=== PATIENT | male | born 1990 | race Caucasian/White ===

== ENCOUNTER 2017-01-20 06:53 | Observation (INO) | payer MEDICARE, MEDICAID ==
[~2017-01-20] VITALS: Ht 180.3 cm; Wt 67.9 kg
[2017-01-20] VITALS (9 sets, daily range): BP systolic 138–165; BP diastolic 64–109; PULSE 84–119; RESP 16–22; O2SAT 98–100
[~2017-01-20 06:53] MED LIST: ACET325T51 PO; ALBU18HF INHALATION; CYCL10TA9 PO; HYDR-4003 PO; INSU100V2 SUBQ; INSU100V7 SUBQ; ONDA4TAB6 PO; ONDA4TAB9 PO; PROM25TA14 PO
--- NOTE | 2017-01-20 06:58 | ED.REPORT ---
HPI-NVD Date of Service Jan 20, 2017 ED Provider: Jarrell Hutchins MD This is a 26 year old male with a history of gastroparesis, DM, IV drug abuse, non-epileptic seizures presenting to the emergency department due to sudden onset nausea and vomiting that began 3 hours ago upon awakening. Patient reports running out of prescribed Lantus one week ago but he took Apidra today morning. He states, "it hurts so bad everywhere." Patient has a history of DKA and states that his symptoms today are worse than with previous DKA. Patient last used IV heroin just prior to arrival. Reports chills. Denies fevers, recent infections, abdominal pain, diarrhea, dysuria, chest pain, or change LOC at this time. He has recent history of elevated blood sugar of 700 for which he was hospitalized for at [facility] [place]. Nursing Notes Stated Complaint: VOMITING Nursing Notes Reviewed: Yes (Fraxion, meds not reconciled) Allergies: Coded Allergies: bee venom (honey bee) (Verified Allergy, Severe, 03/29/16) metoclopramide HCl (Verified Allergy, Severe, Anaphylaxis, 03/29/16) prochlorperazine edisylate (Verified Allergy, Severe, 03/29/16) 03/20/16 PATIENT RECEIVED PROMETHAZINE prochlorperazine maleate (Verified Allergy, Severe, 03/29/16) Scheduled Acetaminophen (Acetaminophen) 325 Mg Tablet MG PO Q4H Insulin Glulisine (Apidra U100 Insulin Vial) 100 Unit/1 Ml Vial 1-12 UNIT SUBQ WITH MEALS Scheduled PRN Albuterol Sulfate (Ventolin HFA Inhaler) 200 Puff/18 Gm Inhaler 1 PUFF INHALATION Q4H PRN PRN For Shortness of Breath Cyclobenzaprine (Cyclobenzaprine) 10 Mg Tablet 10 MG PO TID PRN PRN Spasm Hydrocodone-Acetaminophen 5-325 mg (Hydrocodone-Acetaminophen 5-325 mg) 1 Each Tablet 1 TABLET PO Q4H PRN PRN For Pain Insulin Glargine (Lantus U100 Insulin Vial) 100 Unit/Ml Vial 30 UNIT SUBQ QPM- INSULIN PRN PRN Diabetes Ondansetron (Zofran) 4 Mg Tablet 4 MG PO Q4H PRN PRN For Nausea Ondansetron ODT (Zofran ODT) 4 Mg Tablet 4 MG PO Q4H PRN PRN For Nausea Promethazine (Promethazine) 25 Mg Tablet 25 MG PO Q6H PRN PRN For Nausea Promethazine (Promethazine) 25 Mg Tablet 25 MG PO Q6H PRN PRN For Nausea General Time Seen by MD: 06:54 Chief Complaint Vomiting Hx Obtained From: Patient Arrived By: Walk-in Onset Occurred: 1 - 4 hours ago Symptom Duration: Since onset Severity: Current: Moderate Pertinent Negative: Pt denies other symptoms Recent Healthcare: Recent doctor visit Similar Sx Previous: No Past Medical History Past Medical History Gastroparesis Degenerative disc disease ho Fractured right collar bone [place] disease ho Heart murmur ho non-epileptic seizures Reports: Asthma, Diabetes mellitus Past Surgical History Surgery for fractured collar bone Reports: Cholecystectomy Smoking History Former Smoker Social History Alcohol Use: Denies alcohol use Drug Use: IV drugs Other Social History: Local resident Occupation Unemployed Ambulatory Status Independent Review of Systems Constitutional: Denies: Chills, Fever GI: Reports: Nausea, Vomiting, Denies: Abdominal pain, Diarrhea Neurologic: Denies: Headache, Lightheaded Complete sys rev & neg: except as marked. Respiratory: Denies: Non-productive cough, Shortness of breath Physical Exam Initial Vital Signs Vital Signs (First) Date Time Temp Pulse Resp B/P Pulse Ox O2 Delivery O2 Flow Rate FiO2 01/20/17 06:58 36.1 119 22 161/109 99 Room Air Initial VS: Reviewed Head / Eyes: Atraumatic, Normocephalic, PERRL Neck: Supple, Non-tender, Full range of motion Respiratory: Breath sounds normal, Clear to auscultation, No respiratory distress Extremities: Vascular intact, Neuro intact, No swelling, No tenderness Skin: Warm, Dry, No cyanosis Neurologic: Alert, Oriented, Nonfocal Psychiatric: Mood/affect normal, Behavior normal, Normal thought content General/Constitutional: Awake, Alert Wretching repeatedly, cachectic, and moaning. History is mostly provided by friend present in the room. Track castillo on arms Abdomen: Atraumatic, Soft, Non-tender Mouth: Positive: Mucous membranes dry Interpretation & Diagnostics Blood Gas Report pH 7.394 pCO2 38 pO2 63.8 cHCO3 - (P) 23.0 cBase (B) -1.6 Lab Results Interpretation Result Diagram: 01/20/17 0705 01/20/17 0705 Test 01/20/17 07:05 01/20/17 07:21 White Blood Count 14.8th/mm3 (3.8-10.1) Red Blood Count 5.36mil/mm3 (4.40-5.80) Hemoglobin 14.1g/dL (13.8-17.2) Hematocrit 40.6% (41.0-50.0) Mean Corpuscular Volume 75.7fL (81-100) Mean Corpuscular Hemoglobin 26.3pg (27.0-35.0) Mean Corpuscular Hemoglobin Concent 34.7% (32.0-37.0) Red Cell Distribution Width 13.3% (12.3-15.4) Platelet Count 179bil/L (150-400) Neutrophils (%) (Auto) 69.4% (40-74) Lymphocytes (%) (Auto) 20.0% (14-46) Monocytes (%) (Auto) 7.9% (4-12) Eosinophils (%) (Auto) 2.0% (0-5) Basophils (%) (Auto) 0.4% (0-3) Sodium Level 129mEq/L (134-144) Potassium Level 4.7mEq/L (3.5-5.2) Chloride Level 86mEq/L (97-108) Carbon Dioxide Level 16mmol/L (18-29) Blood Urea Nitrogen 19mg/dL (6-20) Creatinine 0.67mg/dL (0.76-1.27) Estimat Glomerular Filtration Rate 154mL/min (>59) Glucose Level 637mg/dL (60-99) Calcium Level 10.2mg/dL (8.5-10.1) Total Bilirubin 1.7mg/dL (0.0-1.2) Aspartate Amino Transf (AST/SGOT) 23U/L (0-50) Alanine Aminotransferase (ALT/SGPT) 13U/L (0-44) Alkaline Phosphatase 186U/L (25-150) Total Protein 8.0g/dL (6.4-8.4) Albumin 4.4g/dL (3.4-5.0) Lipase 11U/L (13-60) Ketones Small (Negative) Hold Grimaldo Top Tube Received (Received) Lab Results Interpretation: CBC positive leukocytosis CMP pseudohyponatremia, metabolic acidosis with anion gap of 27 consistent with DKA, hyperglycemia 637 Re-Eval/Medical Decision Med Decision/Clinical Course Is a 26-year-old male with a history of substance abuse presents complaining of nausea vomiting and being out of insulin for several days. Says he could not afford any his insulin, test strips, so has been able to take any of his Lantus for a number of days, but did just make a gas at some short acting insulin today , but is having worsening nausea vomiting abdominal pain that is had with previous DKA. He did admit to injecting heroin prior to coming in, but is concerned he will develop withdrawal in the hospital. On Exam he is a cachectic gentleman who is retching repeatedly, he appears fatigued and mildly ill-but does not appear toxic or in distress. He has no chest pain, no infectious symptoms. His abdomen is soft nontender. Initial venous gas was quite normal, so I actually initiated non-DKA insulin drip along with nausea medicines and hydration, but when his formal labs returned he does have a cochlear anion gap of 27 consistent with formal DKA, so was switched over to a DKA insulin drip the (the physical drip had not yet been started) His Potassium is normal. He is receiving hydration, is concerned about withdrawal reports of methadone 20 mg at a good job helping him, so once his nausea is controlled he did receive a single dose of methadone in the department. He is being admitted to the CCU for continued management of his diabetic ketoacidosis. A social work consult is indicated. This case was discussed with the admitting hospitalist. Source of Hx: Old records Re-Evaluation/Progress : Time of Eval: 09:02 Re-Evaluation/Progress Note: Pt rechecked. Informed pt of need for admission. Pt understands and agrees with plan for admission. All questions addressed. Consultation : Referral / Consult Name: Ever Franklin MD Consulted With: Hospitalist Call Returned at: 08:58 Airbrush Artist: Accepts admit Differential Diagnosis: Positive: Dehydration, Diabetes mellitus, Diabetic ketoacidosis, Negative: Acute gastroenteritis, Appendicitis, Bowel obstruction, Inflam bowel disease, Meniere's disease, Pancreatitis, Peptic ulcer disease, Counseled Regarding: Diagnosis, Lab results, Need for follow-up Discharge & Departure Impression: Primary Impression: DKA (diabetic ketoacidoses) Diabetes mellitus type: type 1 Diabetes mellitus complication detail: without coma Qualified Code: E10.10 - Type 1 diabetes mellitus with ketoacidosis without coma Additional Impressions: Noncompliance with medication regimen Substance abuse Disposition: ADMITTED TO HOSPITAL Discharge Condition All VS Reviewed: Yes Condition: Stable Referrals: Celso Beatty MD (PCP) Crit Care Except Billable Proc Time Spent: 30-74 minutes Services Performed: Patient management by me, Time spent at bedside, Reviewing test results, Discussing patient care, Documentation in record, Time with fam/ surrogate, Other Scribe Attestation Portions of this note were transcribed by Jan Red. I, Dr. Hutchins personally performed the history, physical exam and medical decision- making; I reviewed and confirmed the accuracy of the information in the transcribed note. Signed by: Jan Red. 01/20/2017, 15:00. copies to: Celso Beatty MD, Matthew F MD Jan 20, 2017 06:58 DERICK RED Jan 20, 2017 07:10 Jan Yang Jan 20, 2017 07:49
[2017-01-20] MEDS ORDERED: 0.9% Sodium Chloride 1,000 ML IV ONE ×2 (07:05→07:10)
[2017-01-20] MEDS ORDERED: Ondansetron 2 mg/mL 2 mL Inj ONE (07:06)
[2017-01-20] MEDS ORDERED: Promethazine Inj 25 MG in 0.9% Sodium Chloride-Pha MIX 100 ML IV ONE (07:10)
[2017-01-20] MEDS ORDERED: Ondansetron 2 mg/mL 2 mL Inj IVPUSH ONE ×2 (07:10→08:40)
--- NOTE | 2017-01-20 07:21 | ABG ---
DateTimeAnalyzed 07:17:00 -_ pH ____7.382 - pCO2 ___39.1__ -mmHg pO2 ___52.4__ -mmHg HCO3- ___22.7__ -mmol/L ABE ___-1.6__ -mmol/L tHb ___14.8__ -g/dL O2Hb ___86.3__ -% COHb ____2.4__ -% MetHb ____0.8__ -% sO2 ___89.2__ -% FIO2 ___21.0__ -% Drawn By jmw - Date/Time Notified____ 07:20:00 -_ Notified By JMW - Notified Whom DR SHY - Age 20 -years B 763 -mmHg tO2 ___17.9__ -Vol% Ever test N/A -
[2017-01-20 07:27] LABS: BASOPHILS % (AUTO) 0.4 % (0-3); MONOCYTES % (AUTO) 7.9 % (4-12); Mean Corpuscular Hemoglobin 26.3 pg (27.0-35.0); Mean Corpuscular Volume 75.7 fL (81-100); NEUTROPHILS % (AUTO) 69.4 % (40-74); Platelet Count 179 bil/L (150-400)
--- NOTE | 2017-01-20 07:37 | ABG ---
DateTimeAnalyzed 07:32:52 -_ pH ____7.394 - pCO2 ___37.7__ -mmHg pO2 ___63.8__ -mmHg HCO3- ___23.0__ -mmol/L ABE ___-1.6__ -mmol/L tHb ___14.9__ -g/dL O2Hb ___92.5__ -% COHb ____3.3__ -% MetHb ___-0.3__ -% sO2 ___95.4__ -% FIO2 ___21.0__ -% Drawn By jmw - Date/Time Notified____ 07:37:00 -_ Notified By JMW - Notified Whom DR SHY - Age 20 -years B 761 -mmHg K+ ____5.4__ -mmol/L tO2 ___19.3__ -Vol% Ever test N/A -
[2017-01-20] MEDS ORDERED: Insulin Human REGular Inj 100 UNIT in 0.9% Sodium Chloride-Pha MIX 100 ML IV SCH (08:37)
[2017-01-20 08:58] LABS: Lipase 11 U/L (13-60)
[2017-01-20] MEDS ORDERED: Insulin Human REGular 100 Units/100 mL NS IV SCH ×2 (09:05)
[2017-01-20] MEDS ORDERED: Alum-Mag Hydrox-Simeth 30 mL Suspension PO PRN ×2 (09:15→15:45)
[2017-01-20] MEDS: 0.9% Sodium Chloride 1,000 ML IV SCH ×2 (09:41→17:03)
[2017-01-20] MEDS: Insulin Human REGular 100 Units/100 mL NS IV SCH ×4 (09:51→17:38)
[2017-01-20] MEDS: Ondansetron 2 mg/mL 2 mL Inj IVPUSH PRN ×4 (10:11→21:32)
[2017-01-20 12:09] LABS: Magnesium 1.9 mg/dL (1.6-2.6); Phosphorus 4.1 mg/dL (2.5-4.9)
[2017-01-20 12:25] LABS: APPEARANCE,URINE CLEAR (CLEAR,HAZY); COLOR,URINE STRAW (YELLOW); OCCULT BLOOD,URINE LARGE (NEGATIVE); UROBILINOGEN,URINE NORMAL (NORMAL)
[2017-01-20] MEDS: D5W1/2NS 1,000 mL IV PRN ×2 (13:50→22:59)
--- NOTE | 2017-01-20 13:50 | PCM.HPMED ---
Subjective Date of Service Jan 20, 2017 Primary Provider: Admitting Physician: Ever Franklin MD Primary Care Physician: Celso Beatty MD Attending Physician: Ever Franklin MD Admit Status: From the Emergency Department, 23-Hour Observation, Critical Care Chief Complaint: Hyperglycemia and vomiting. History of Present Illness: This is a 26-year-old gentleman with a history of heroin addiction who is currently actively using. He has been homeless for about 8 days. He also has diabetes mellitus which is insulin-dependent. He has been out of his insulin for several days has not been using any insulin for about 2 days. He was using some short acting for a couple of days. He has been out of test strips for over a week and has been essentially doing his shots blind. He also has been actively using heroin. Heroin for about the last year. He had been clean for a year and had been smoking heroin previously. The patient became acutely ill this morning with nausea vomiting but no diarrhea. He has diffuse pain. His last heroin usage was this morning. He denies fevers or chills. No cough or shortness of breath. No palpitations. No recent difficulty with hematuria and dysuria. He had other drug use. Review of Systems: All else reviewed and otherwise noncontributory except as noted in the history of present illness. Allergies Coded Allergies: bee venom (honey bee) (Verified Allergy, Severe, 03/29/16) metoclopramide HCl (Verified Allergy, Severe, Anaphylaxis, 03/29/16) prochlorperazine edisylate (Verified Allergy, Severe, 03/29/16) 03/20/16 PATIENT RECEIVED PROMETHAZINE prochlorperazine maleate (Verified Allergy, Severe, 03/29/16) Home Medications None recently. PMH DM 1, insulin dependent. Heroin addiction Surgical History None Family History Diabetes Social History Occupation: None Hx Alcohol Use: No Hx Substance Use: Yes (Heroin last used this am) Hx Tobacco Use: Yes Smoking Status: Former Smoker Exam Vital Signs Vital Sign - Last Date Time Temp Pulse Resp B/P Pulse Ox O2 Delivery O2 Flow Rate FiO2 01/20/17 12:30 36.6 109 18 152/72 100 Room Air Exam Oriented 3. No distress. Fluent speech. Normal affect. Very thin. Normal skull. Normal nose and ears. Anicteric sclera, symmetric pupils Oropharynx is unremarkable, no facial droop. Neck is supple, normal thyroid. No adenopathy. Lungs are clear, normal effort rate. Heart is regular without murmur gallop or rub. Abdomen soft, nondistended or tender. Extremities are free of pedal edema. Good radial and pedal pulses. Skin is free of rash, lesions. No petechiae or ecchymosis. Joints are grossly normal. Cranial nerves are grossly normal. Motor strength is normal in all extremities. Normal muscular tone. Track castillo and many clown tattos are noted. Lab and Diagnostics Result Diagram: 01/20/1770401/20/17704 Assessment & Plan 1. Hyperglycemia and volume depletion, POA. Non DKA insulin drip protocol and fluid resuscitation. This is due to medication non-compliance. 2. Medication non-compliance, POA. Resume insulin. 3. Heroin addiction, POA. Watch for symptoms of withdrawal. Patient is admitted observation status. Full code. Resuscitation Status: CPR: Attempt Resuscitation Time spent 40 minutes Ever Franklin MD Jan 20, 2017 13:50
[2017-01-20] MEDS ORDERED: Polyethylene Glycol (PEG) 17 Gm Powder PO PRN (15:45)
[2017-01-20] MEDS ORDERED: Ondansetron 2 mg/mL 2 mL Inj IVPUSH PRN (15:45)
--- NOTE | 2017-01-20 16:50 | NUR ---
P: Hyperglycemia I: Insulin gtt DKA protocol. NS. infusing at 100cc/hr. D.45NS infusing with blood sugars more stable. NPO. c/o nausea with bile emesis. Pt insists on drinking sips of water even though it has been explained that he will throw it up. Pt has one peripheral line and lab or IV therapy have been unable to get blood or second line in due to pt's poor veins. Napping on and off. Voiding qs. Family at bedside. Pt alert and oriented. Turns self. E: Stable S: Alert and oriented. Uses call light appropriately. Frequent rounding.
--- NOTE | 2017-01-20 17:51 | NUR ---
SAMANTHA explained and signed. Copy of SAMANTHA and Medicare self administered medication information given to pt.
[2017-01-20] MEDS: Promethazine Inj 12.5 MG in 0.9% Sodium Chloride 50 ML IV PRN ×2 (17:54→22:12)
[2017-01-20] MEDS ORDERED: Promethazine 25 mg Rectal Suppository RECTAL ONE (19:30)
[2017-01-21] VITALS: BP 164/70; PULSE 99; RESP 14; O2SAT 100
[2017-01-21 04:03] VITALS: BP 143/74; PULSE 78; RESP 18; O2SAT 99
[2017-01-21] MEDS: 0.9% Sodium Chloride 1,000 ML IV SCH (05:00)
[2017-01-21 05:08] LABS: BASOPHILS % (AUTO) 0.2 % (0-3); EOSINOPHILS % (AUTO) 1.2 % (0-5); MONOCYTES % (AUTO) 7.9 % (4-12); Mean Corpuscular Volume 76.8 fL (81-100); NEUTROPHILS % (AUTO) 79.4 % (40-74)
[2017-01-21 05:38] LABS: Platelet Count 220 bil/L (150-400)
--- NOTE | 2017-01-21 06:17 | NUR ---
DKA protocol Pt on insulin dka protocol, BG from 120-280's, hydrating fluid Ns @ 100 cc/hr and D5 1/2NS or D10 IV, anion gap this am is 22. Pt adamant on drinking water despite being told of NPO status. Pt continue to have cyclic nausea and vomiting immediately after drinking, pt remain insistent on drinking water. Given zofran and phenergan IV prn for nausea, also phenergan suppository x1 given and lorazepam 1 mg for anxiety Pt asking to get methadone to help with withdrawal symptoms from heroin, notified and given methadone 10mg po. Pt stated "that's not enough for me". Through midnight pt became very anxious and fidgety in bed. RN overheard conversation with brother on phone. "hurry up", "when will you be here?". Pt's brother and a friend came up to visit shortly after midnight, primary RN outside of pt's room with window up and visible from the outside. Brother handed pt w/ eyeglasses and a watch, pt quick in putting stuff away. Visitors left less than 5 mins after they arrived. Pt stated he want to use the BR because he felt like having diarrhea, pt dc'd himself from tele monitor and in BR for about 30 mins, RN frequently checked on pt. Pt wanting more time in BR dt self-reported diarrhea. RN asked pt not to flush toilet to assess stool, pt proceeded to flush. When pt came out of BR, pt appeared groggy. HR briefly in the 150's [address], RN questioned patient if brother had brought in heroin. Pt denied when asked. Pt slept from midnight until around 0500 when lab came around. Pt nauseated again and wanting zofran and or phenergan dose.
[2017-01-21 08:29] VITALS: BP 135/72; PULSE 92; RESP 20; O2SAT 100
[2017-01-21 12:00] VITALS: BP 120/74; PULSE 88; RESP 16; O2SAT 100
[2017-01-21] MEDS ORDERED: Insulin GLARgine 100 Unit/mL Syringe SUBQ ONE (13:20)
[2017-01-21] MEDS ORDERED: Glucose 40% Oral Gel 15 Gm Tube PO PRN (13:25)
[2017-01-21] MEDS ORDERED: Insulin LISPRO 300 Unit/3 mL Inj SUBQ SCH (14:30)
[2017-01-21 15:30] VITALS: BP 135/72; PULSE 82; RESP 12; O2SAT 100
--- NOTE | 2017-01-21 15:48 | NUR ---
Social Work Note: CD Assessment Current Circumstances: SW met with pt at bedside to discuss CD hx and resources per MD request. Pt was positive for Opiates, Antidepressants, and Marijuana. Pt denies any current w/d symptoms. Per hand straightener, there was suspicion of pt friend bringing in outside substances to pt last night. Hx of Substance use: Pt reports participating in drug use beginning in the age 12 when he started stealing his mothers prescription pain pills. Pt current preference is Heroin. Pt last used heroin prior to arrival in the ED at this hospital admission per ED summary report. Hx of tx programs/detox: Pt explained that he has participated in inpt tx and NA before but it was not helpful for him as it was too religiously focused. Family hx: Pt cites "half of my family are addicts, its hard to stay clean when everyone around you is doing drugs." Hx of sobriety and supports: Pt cites his mother as his primary support. Pt also cites his four year old daughter as his primary motivation to get and stay clean. Pt was sober for three years after his girlfriend became with their daughter. Pt relapsed two years ago when his girlfriend became again and they decided to terminate the due to being homeless and other psychosocial factors. Pt reflected on how hard of a decision that was for them as it "went against everything we believed in and wanted." SW and pt discussed engaging in outpt mental health services for extra support out in the community in addressing that traumatic time in his life. Pt explained he was enrolled with [facility] in the past as well and had a very good experience with their case management program. SW offered to make an outpt appointment for him at time of discharge, pt politely declined and explained he knows how to establish care with [facility] if he chooses to go back. Patients Perception of the consequences of use: Pt does not connect pt decline in health with his CD use. Pt does have some insight into his situation and his reliance on drugs in order to deal with his internal struggles and stress. Suicide Risk: Pt denies and current suicidal ideation or thoughts of harming himself or others. Pt explained when he was younger he struggled with depression and SI due to bullying after his diabetes diagnosis at a young age. Pt explained he began using marijuana which pt states helped with his depression and he has not experienced those symptoms since. Pt confirmed that if he ever did experience depression again or found him self struggling in a traumatic situation again he would feel comfortable communicating this with his mother. Pt also accepted Crisis Line Number Motivation for tx: Pt accepted CD resources and is thinking about following up with [facility] but declined any additional help making outpt appointments. Discharge Plan: Pt plans to discharge home via POV when medically ready. Pt denies any other needs. No other discharge needs identified. VANESSA Rahman
--- NOTE | 2017-01-21 16:22 | NUR ---
Social Work Note: Initial Assessment Data& Assessment: EMR reviewed. SW met with pt at bedside to discuss charge planning, SW role explained. Mukesh Galdamez is a 26 year old male under observation beginning on on 01/20/2017 for DKA. Pt explained he had trouble obtaining his medications due to financial reasons. Pt explained his medication is only $3.50 though and he should have no issues being able to afford it in the future. Pt has Medicare and [facility] Medicaid supplement. Pt confirmed his PCP is still current and he sees Celso Beatty MD. Pt lives in [place] and is currently couch surfing with friends and family. Pt mother is a positive support for him though and helps to mange his medications. Pt does not have SNf or HHhx. Pt does not have LTC insurance or VA benefits. Pt is independent at baseline with all ADL's. Pt does not use any DME. Pt mother to transport him home when medically ready. CD assessment completed, resources provided. Pt provided with DPOA/Advance Directive paperwork to review and complete when possible. Pt denies any other needs. No other discharge needs identified. Plan: Per pt is getting closer to being medically ready for discharge. Pt accepted resources. Anticipated discharge home via POV when medically ready. Pt denies any other needs. No other discharge needs identified. VANESSA Rahman
--- NOTE | 2017-01-21 16:30 | PCM.DIMED ---
Savanah Montilla DO 01/21/17 1630: Discharge Instructions Date of Service January 21, 2017 Dates of Hospitalization Jan 20, 2017 at 09:47 Discharge Diagnosis Discharge Diagnosis 1. Hyperglycemia and volume depletion, POA. Non DKA insulin drip protocol and fluid resuscitation. 2. Medication non-compliance, POA. . 3. Heroin addiction, POA. Medication Instructions PLEASE TAKE YOUR INSULIN. At minimum please take your 30 units of Lantus daily. Diet Diabetic Activity Limited until seen by PCP Call your provider Fever or Chills, Shortness of breath, Excessive diarrhea Patient Instructions Please follow up with your PCP in one week. Follow-up Provider: Celso Beatty MD Follow-up with PCP in: 1 week Ever Franklin MD 01/22/17 0731: Discharge Instructions Attending's Statement The patient was seen and examined with the resident house staff. Agree with all attached documentation. Savanah Montilla DO January 21, 2017 16:30 Ever Franklin MD January 22, 2017 07:31
[2017-01-21] MEDS ORDERED: INSU100V7 SUBQ (16:32)
[2017-01-21] MEDS ORDERED: INSU100V28 SUBQ (16:32)
--- NOTE | 2017-01-21 16:57 | NUR ---
Pt to be discharged home Pt condition stabilized and last sugar was in the 200's following lunch. He had a dose of lantus and correctional insulin this afternoon after his IV fluids and insulin was discontinued. Pt has been cooperative this afternoon and is eager to go home. He is to start at new job this week and has given him a note to indicate it is OK to start work on Wed am. VS have been stable. Last temp was 37.2. He has tolerated diet and fluids well without any nausea or vomiting.
--- NOTE | 2017-01-21 17:44 | NUR ---
Pt discharged at 1720hrs Pt was discharged with written and verbal orders, he has prescriptions for his insulin. IV was removed prior to discharge and his mother was picking him up to take him home.
--- NOTE | 2017-01-21 18:51 | NUR ---
Note: 2 empty syringes were found in pt bathroom after pt discharged. 2 diabetic type syringes were found discarded and wrapped in paper towels in the garbage bin in the pt room after he left this afternoon. They were discarded into a sharps container.
--- NOTE | 2017-01-22 21:50 | PCM.DC.MED ---
Discharge Summary Date of Service January 22, 2017 Dates of Hospitalization Date of Hospital Admission Jan 20, 2017 at 09:47 Date of Discharge: January 21, 2017 Providers: Admitting Physician: Ever Franklin MD Primary Care Physician: Celso Beatty MD Attending Physician: Ever Franklin MD Diagnosis at Time of Discharge Diagnosis at Time of Discharge 1. Hyperglycemia and volume depletion, POA. Non DKA insulin drip protocol and fluid resuscitation. 2. Medication non-compliance, POA. . 3. Heroin addiction, POA. Brief History From Dr. Franklin's H and P: "This is a 26-year-old gentleman with a history of heroin addiction who is currently actively using. He has been homeless for about 8 days. He also has diabetes mellitus which is insulin-dependent. He has been out of his insulin for several days has not been using any insulin for about 2 days. He was using some short acting for a couple of days. He has been out of test strips for over a week and has been essentially doing his shots blind. He also has been actively using heroin. Heroin for about the last year. He had been clean for a year and had been smoking heroin previously. The patient became acutely ill this morning with nausea vomiting but no diarrhea. He has diffuse pain. His last heroin usage was this morning. He denies fevers or chills. No cough or shortness of breath. No palpitations. No recent difficulty with hematuria and dysuria. He had other drug use." Hospital Course 1. Hyperglycemia and volume depletion, POA. DKA protocol initiated. AG closed quickly and patient was eager to be discharged home. 2. Medication non-compliance, POA. Resumed insulin. 3. Heroin addiction, POA. No symptoms of withdrawal noted. Exam Vital Signs (Last) Date Time Temp Pulse Resp B/P Pulse Ox O2 Delivery O2 Flow Rate FiO2 01/21/17 15:30 37.2 82 12 135/72 100 Room Air Exam Oriented 3. No distress. Fluent speech. Normal affect. Very thin. Normal skull. Normal nose and ears. Anicteric sclera, symmetric pupils Oropharynx is unremarkable, no facial droop. Neck is supple, normal thyroid. No adenopathy. Lungs are clear, normal effort rate. Heart is regular without murmur gallop or rub. Abdomen soft, nondistended or tender. Extremities are free of pedal edema. Good radial and pedal pulses. Skin is free of rash, lesions. No petechiae or ecchymosis. Joints are grossly normal. Cranial nerves are grossly normal. Motor strength is normal in all extremities. Normal muscular tone. Track castillo and many clown tattos are noted. Test 01/20/17 07:05 01/20/17 07:21 01/20/17 09:45 01/21/17 05:00 Hemoglobin A1c 12.1% (4.8-5.6) Osmolality 325 (275-300) Phosphorus Level 4.1mg/dL (2.5-4.9) Magnesium Level 1.9mg/dL (1.6-2.6) Lipase 11U/L (13-60) Ketones Small (Negative) Hold Grimaldo Top Tube Received (Received) Urine Color Straw (YELLOW) Urine Appearance Clear (CLEAR,HAZY) Urine pH 5.0 (5.0-8.0) Urine Specific [place] 1.025 (1.003-1.035) Urine Protein Negativemg/dL (NEG,TRACE) Urine Glucose (UA) 1000mg/dL (NEGATIVE) Urine Ketones 80mg/dL (NEGATIVE) Urine Occult Blood Large (NEGATIVE) Urine Nitrite Negative (NEGATIVE) Urine Bilirubin Negative (NEGATIVE) Urine Urobilinogen Normalmg/dL (NORMAL) Urine Leukocyte Esterase Negative (NEGATIVE) Urine RBC 0-2/hpf (0-2) Urine WBC 0-5/hpf (0-5) Urine Epithelial Cells Few/hpf (NONE-MOD) Urine Crystals None seen (NONE SEEN) Urine Bacteria None/hpf (NONE-FEW) Urine Hyaline Casts None/lpf (NONE) Urine Granular Casts None seen (NONE SEEN) Urine Waxy Casts None seen (NONE SEEN) Urine Red Blood Cell Casts None seen (NONE SEEN) Urine White Blood Cell Casts None seen (NONE SEEN) Urine Mucus None seen (None Seen) Urine Trichomonas None seen (NONE SEEN) Urine Yeast None (NONE SEEN) Urinalysis Comment None Urine Culture Reflexed Not indicated White Blood Count 17.8th/mm3 (3.8-10.1) Red Blood Count 5.04mil/mm3 (4.40-5.80) Hemoglobin 13.1g/dL (13.8-17.2) Hematocrit 38.7% (41.0-50.0) Mean Corpuscular Volume 76.8fL (81-100) Mean Corpuscular Hemoglobin 26.0pg (27.0-35.0) Mean Corpuscular Hemoglobin Concent 33.9% (32.0-37.0) Red Cell Distribution Width 13.5% (12.3-15.4) Platelet Count 220bil/L (150-400) Neutrophils (%) (Auto) 79.4% (40-74) Lymphocytes (%) (Auto) 10.9% (14-46) Monocytes (%) (Auto) 7.9% (4-12) Eosinophils (%) (Auto) 1.2% (0-5) Basophils (%) (Auto) 0.2% (0-3) Ionized Calcium 1.16mmol/L (1.17-1.32) Total Bilirubin 1.1mg/dL (0.0-1.2) Aspartate Amino Transf (AST/SGOT) 21U/L (0-50) Alanine Aminotransferase (ALT/SGPT) 12U/L (0-44) Alkaline Phosphatase 159U/L (25-150) Total Protein 7.2g/dL (6.4-8.4) Albumin 4.4g/dL (3.4-5.0) Test 01/21/17 09:50 01/21/17 12:00 Lactic Acid Level 0.8mmol/L (0.4-2.0) Sodium Level 140mEq/L (134-144) Potassium Level 3.2mEq/L (3.5-5.2) Chloride Level 99mEq/L (97-108) Carbon Dioxide Level 24mmol/L (18-29) Blood Urea Nitrogen 12mg/dL (6-20) Creatinine 0.67mg/dL (0.76-1.27) Estimat Glomerular Filtration Rate 154mL/min (>59) Glucose Level 197mg/dL (60-99) Calcium Level 8.2mg/dL (8.5-10.1) Discharge Medications Discharge Medications Acetaminophen (Acetaminophen) 325 Mg Tablet MG PO Q4H (Reported) Insulin Glargine (Lantus U100 Insulin Vial) 100 Unit/Ml Vial 30 UNIT SUBQ QPM- INSULIN Prescribed by: ROBERTA MONTILLA DO Insulin Regular, Human (HUMulin-R U100 Insulin Vial) 100 Unit/1 Ml Vial 1-12 UNIT SUBQ TIDWM Prescribed by: ROBERTA MONTILLA DO As needed Albuterol Sulfate (Ventolin HFA Inhaler) 200 Puff/18 Gm Inhaler 1 PUFF INHALATION Q4H PRN PRN For Shortness of Breath (Reported) Cyclobenzaprine (Cyclobenzaprine) 10 Mg Tablet 10 MG PO TID PRN PRN Spasm Prescribed by: NASH GOODE DO Hydrocodone-Acetaminophen 5-325 mg (Hydrocodone-Acetaminophen 5-325 mg) 1 Each Tablet 1 TABLET PO Q4H PRN PRN For Pain Prescribed by: NASH GOODE DO Ondansetron (Zofran) 4 Mg Tablet 4 MG PO Q4H PRN PRN For Nausea Prescribed by: SUNIL IBARRA DO Ondansetron ODT (Zofran ODT) 4 Mg Tablet 4 MG PO Q4H PRN PRN For Nausea Prescribed by: SREEDHAR NICHOLE MD Promethazine (Promethazine) 25 Mg Tablet 25 MG PO Q6H PRN PRN For Nausea ( Reported) Promethazine (Promethazine) 25 Mg Tablet 25 MG PO Q6H PRN PRN For Nausea Prescribed by: SREEDHAR NICHOLE MD Additional med instructions PLEASE TAKE YOUR INSULIN. At minimum please take your 30 units of Lantus daily. Followup Plan Discharge Diet: Diabetic Discharge Activity: Limited until seen by PCP Patient Instructions Please follow up with your PCP in one week. Follow-up Provider: Celso Beatty MD Follow-up with PCP in: 1 week Time spent 45 min Attending Statement Patient seen and examined with house staff. Agree with all attached documentation. Roberta Montilla DO January 22, 2017 21:50 Ever Franklin MD January 23, 2017 15:55
== END 2017-01-21 18:07 | disposition home or self-care (01) ==
LOC: SED 06:53 → PCC 09:47 → INTOOBSV 09:47 → CCU 11:32
PROVIDERS: ADMIT Hospitalist; ATTEND Hospitalist
DX: E10.10 Type 1 diabetes mellitus with ketoacidosis without coma (principal); T38.3X6A Underdosing of insulin and oral hypoglycemic [antidiabetic] drugs, initial encounter; Z91.120 Patient's intentional underdosing of medication regimen due to financial hardship; Z59.0 Homelessness; F11.20 Opioid dependence, uncomplicated; Z87.891 Personal history of nicotine dependence; E86.0 Dehydration
CPT/HCPCS: 36415; 80053; 81000; 82009; 82375; 82803; 82948; 83036; 83605; 83690; 83735; 83930; 84100; 85025; 87040; 96361; 96365; 96366; 96375; 96376; 99291; G0378; J1200; J1815; J2060; J2405; J2550; J7030; J7042

== ENCOUNTER 2017-06-17 13:48 | Emergency (ER) | payer MEDICARE, MEDICAID ==
[~2017-06-17] VITALS: Ht 180.3 cm; Wt 70.5 kg
[~2017-06-17 13:48] MED LIST changes: -INSU100V2 SUBQ; +INSU100V28 SUBQ
[2017-06-17 13:51] VITALS: BP 152/90; PULSE 72; RESP 16; O2SAT 100
--- NOTE | 2017-06-17 14:00 | ED.REPORT ---
HPI-Abd Pain M Under 40 Date of Service Jun 17, 2017 ED Provider: Aaron Saenz MD Pt is a 27 year old male with a history of diabetes mellitus and heroin drug use who presents to the ED complaining of vomiting onset three days ago that has worsened at 0400 today. Additional symptoms include abdominal pain, dysuria , subjective fever, chills, and cough. He was admitted to the hospital in January 2017 for DKA, and was non-compliant with his medications due to his heroin use. Pt stated that he last used heroin a year ago, but told the nurse that he used this morning. Nursing Notes Stated Complaint: DIABETIC/VOMITING Chief Complaint: Male Abdominal Pain Nursing Notes Reviewed: Yes Allergies: Coded Allergies: metoclopramide HCl (Verified Allergy, Severe, Anaphylaxis, 03/29/16) prochlorperazine edisylate (Verified Allergy, Severe, 03/29/16) 03/20/16 PATIENT RECEIVED PROMETHAZINE prochlorperazine maleate (Verified Allergy, Severe, 03/29/16) venom-honey bee (Verified Allergy, Severe, 03/29/16) Scheduled Acetaminophen (Acetaminophen) 325 Mg Tablet MG PO Q4H Insulin Glargine (Lantus U100 Insulin Vial) 100 Unit/Ml Vial 30 UNIT SUBQ QPM- INSULIN Insulin Regular, Human (HUMulin-R U100 Insulin Vial) 100 Unit/1 Ml Vial 1-12 UNIT SUBQ TIDWM Scheduled PRN Albuterol Sulfate (Ventolin HFA Inhaler) 200 Puff/18 Gm Inhaler 1 PUFF INHALATION Q4H PRN PRN For Shortness of Breath Cyclobenzaprine (Cyclobenzaprine) 10 Mg Tablet 10 MG PO TID PRN PRN Spasm Hydrocodone-Acetaminophen 5-325 mg (Hydrocodone-Acetaminophen 5-325 mg) 1 Each Tablet 1 TABLET PO Q4H PRN PRN For Pain Ondansetron (Zofran) 4 Mg Tablet 4 MG PO Q4H PRN PRN For Nausea Ondansetron ODT (Zofran ODT) 4 Mg Tablet 4 MG PO Q4H PRN PRN For Nausea Ondansetron ODT (Zofran ODT) 4 Mg Tablet 4 MG PO Q4H PRN PRN For Nausea Promethazine (Promethazine) 25 Mg Tablet 25 MG PO Q6H PRN PRN For Nausea Promethazine (Promethazine) 25 Mg Tablet 25 MG PO Q6H PRN PRN For Nausea General Time Seen by MD: 14:00 Chief Complaint Vomiting moderate Hx Obtained From: Patient Arrived By: Walk-in Sudden in Onset?: No Onset Occurred: 3 days ago Location: : Diffuse Quality: Painful Severity: Current: Moderate Severity: Maximum: Severe Recent Healthcare: No recent doctor visit, No recent hospitalization Similar Sx Previous: No Past Medical History Past Medical History Gastroparesis Degenerative disc disease ho Fractured right collar bone [place] disease ho Heart murmur ho non-epileptic seizures Admitted to hospital in January 2017 for DKA Non-compliant with medications Reports: Asthma, Diabetes mellitus Past Surgical History Surgery for fractured collar bone Reports: Cholecystectomy Smoking History Former Smoker Social History Alcohol Use: Denies alcohol use Drug Use: IV drugs, THC Other Social History: Local resident Occupation Unemployed Ambulatory Status Independent Review of Systems Constitutional: Reports: Chills, Fever (subjective) Respiratory: Reports: Non-productive cough GI: Reports: Abdominal pain, Vomiting Male: Reports Dysuria Complete sys rev & neg: except as marked. Physical Exam Initial Vital Signs Vital Signs (First) Date Time Temp Pulse Resp B/P Pulse Ox O2 Delivery O2 Flow Rate FiO2 06/17/17 13:51 37.0 72 16 152/90 100 Room Air Initial VS: Reviewed Head / Eyes: Atraumatic, Normocephalic Neck: Supple, Full range of motion Extremities: Vascular intact, Neuro intact, No swelling, No tenderness Skin: Warm, Dry, No cyanosis Neurologic: Alert, Oriented, Nonfocal Psychiatric: Mood/affect normal, Behavior normal, Normal thought content General/Constitutional: Awake, Alert Respiratory / Chest: Atraumatic, Breath sounds NL, Breath sounds = bilat, No respiratory distress Cardiovascular: Heart rate NL, Regular rhythm, Heart sounds NL, No murmurs Abdomen: No guarding, No rebound Diffuse abdominal tenderness that increases in the RLQ and suprapubic regions Back: Full range of motion Interpretation & Diagnostics Lab Results Interpretation Result Diagram: 06/17/17 1430 06/17/17 1430 Test 06/17/17 14:30 06/17/17 15:53 White Blood Count 11.1th/mm3 (3.8-10.1) Red Blood Count 5.39mil/mm3 (4.40-5.80) Hemoglobin 14.4g/dL (13.8-17.2) Hematocrit 41.7% (41.0-50.0) Mean Corpuscular Volume 77.4fL (81-100) Mean Corpuscular Hemoglobin 26.7pg (27.0-35.0) Mean Corpuscular Hemoglobin Concent 34.5% (32.0-37.0) Red Cell Distribution Width 13.9% (12.3-15.4) Platelet Count 330bil/L (150-400) Neutrophils (%) (Auto) 90.4% (40-74) Lymphocytes (%) (Auto) 5.8% (14-46) Monocytes (%) (Auto) 3.1% (4-12) Eosinophils (%) (Auto) 0.4% (0-5) Basophils (%) (Auto) 0.1% (0-3) Sodium Level 136mEq/L (134-144) Potassium Level 4.4mEq/L (3.5-5.2) Chloride Level 91mEq/L (97-108) Carbon Dioxide Level 24mmol/L (18-29) Blood Urea Nitrogen 18mg/dL (6-20) Creatinine 0.74mg/dL (0.76-1.27) Estimat Glomerular Filtration Rate 136mL/min (>59) Glucose Level 331mg/dL (60-99) Osmolality 308 (275-300) Calcium Level 10.4mg/dL (8.5-10.1) Magnesium Level 1.5mg/dL (1.6-2.6) Total Bilirubin 1.1mg/dL (0.0-1.2) Aspartate Amino Transf (AST/SGOT) 24U/L (0-50) Alanine Aminotransferase (ALT/SGPT) 20U/L (0-44) Alkaline Phosphatase 189U/L (25-150) Total Protein 8.9g/dL (6.4-8.4) Albumin 4.9g/dL (3.4-5.0) Lipase 9U/L (13-60) Hold Grimaldo Top Tube Received (Received) Ketones Negative (Negative) Urine Color Yellow (YELLOW) Urine Appearance Clear (CLEAR,HAZY) Urine pH 7.5 (5.0-8.0) Urine Specific [place] 1.020 (1.003-1.035) Urine Protein 100mg/dL (NEG,TRACE) Urine Glucose (UA) 1000mg/dL (NEGATIVE) Urine Ketones 80mg/dL (NEGATIVE) Urine Occult Blood Large (NEGATIVE) Urine Nitrite Negative (NEGATIVE) Urine Bilirubin Negative (NEGATIVE) Urine Urobilinogen Normalmg/dL (NORMAL) Urine Leukocyte Esterase Negative (NEGATIVE) Urine RBC 11-50/hpf (0-2) Urine WBC 0-5/hpf (0-5) Urine Epithelial Cells None/hpf (NONE-MOD) Urine Crystals None seen (NONE SEEN) Urine Bacteria Few/hpf (NONE-FEW) Urine Hyaline Casts None/lpf (NONE) Urine Granular Casts None seen (NONE SEEN) Urine Waxy Casts None seen (NONE SEEN) Urine Red Blood Cell Casts None seen (NONE SEEN) Urine White Blood Cell Casts None seen (NONE SEEN) Urine Mucus None seen (None Seen) Urine Trichomonas None seen (NONE SEEN) Urine Yeast None (NONE SEEN) Urinalysis Comment None Urine Culture Reflexed Not indicated X-Ray Chest Interpretation Chest Xray Interpretation: IMPRESSION: No acute cardiopulmonary findings. Dictated by: Sona Zaragoza M.D. on 06/17/2017 at 16:24 Approved by: Sona Zaragoza M.D. on 06/17/2017 at 16:24 View: Portable, 1 view Interpretation / Wet Read by: Interpret - Radiologist CT Abd / Pelvis Interpretation IMPRESSION: 1. No acute abnormality within the abdomen or pelvis. 2. No renal or ureteral calculi. No hydronephrosis. 3. Normal appendix. 4. No bowel obstruction. 5. Prominence of the urinary bladder wall probably is exaggerated by incomplete distention. Please correlate clinically to exclude cystitis. Dictated by: Navarro Ballesteros M.D. on 06/17/2017 at 15:18 Approved by: Navarro Ballesteros M.D. on 06/17/2017 at 15:24 Study type: Abdominal CT IV contrast, Abdom CT oral contrast Interpretation / Wet Read by: Interpret - Radiologist Re-Eval/Medical Decision Med Decision/Clinical Course 28-year-old male history of IV drug use, diabetes, gastroparesis, chronic abdominal pain, marijuana use presenting with severe abdominal pain. Labs are unremarkable. Patient is not in DKA. His ketones are negative. His blood sugar is elevated 300s osms not indicative of HHS. CT scan of the abdomen shows no acute pathology. I suspect this is related to his chronic gastroparesis as patient reports this is similar to his gastroparesis attacks. His nausea resolved with Zofran. Patient displayed extensive drug-seeking behavior and tried to leave the ER with IV in place. He was in no apparent distress when not aware he was being observed. I do not see any indication for hospitalization. Patient was discharged home with return precautions. Source of Hx: Old records Re-Evaluation/Progress : Time of Eval: 17:07 Patient Status: Condition improved Re-Evaluation/Progress Note: Patient rechecked. Discussed plan for discharge. Patient agrees and understands plan. Gave all RTER and follow-up directions. All questions addresssed at this time. Counseled Regarding: Diagnosis, Lab results, Need for follow-up, When/why to return to ED Patient Discharge & Departure Primary Impression: Abdominal pain Abdominal location: generalized Qualified Code: R10.84 - Generalized abdominal pain Additional Impression: Hyperglycemia Disposition: Home Discharge Condition All VS Reviewed: Yes Condition: Stable Patient Instructions: Acute Abdominal Pain (ED) Additional Instructions: Thank you for entrusting us with your care today. Your labs, examination, and imaging results were all reassuring. There is no apparent dangerous cause for your symptoms at this time, and you are not in DKA. Please call today to schedule a follow-up appointment with your primary care doctor in 2-3 days for a recheck. Please return to the emergency department if you are having any new or worsening symptoms, such as worsening abdominal pain, nausea, vomiting, fever, or elevated blood sugars. Referrals: Celso Beatty MD (PCP) Scribe Attestation Portions of this note were transcribed by Dina Hinton. I, Dr. Saenz personally performed the history, physical exam and medical decision-making; I reviewed and confirmed the accuracy of the information in the transcribed note. copies to: Celso Beatty MD, Ben M MD Jun 17, 2017 14:00 Dina Hinton Jun 17, 2017 14:18
[2017-06-17] MEDS ORDERED: 0.9% Sodium Chloride 1,000 ML IV ONE (14:13)
[2017-06-17 14:50] LABS: BASOPHILS % (AUTO) 0.1 % (0-3); EOSINOPHILS % (AUTO) 0.4 % (0-5); MONOCYTES % (AUTO) 3.1 % (4-12); Mean Corpuscular Hemoglobin 26.7 pg (27.0-35.0); Mean Corpuscular Volume 77.4 fL (81-100); NEUTROPHILS % (AUTO) 90.4 % (40-74); Platelet Count 330 bil/L (150-400)
[2017-06-17] MEDS: Ondansetron 2 mg/mL 2 mL Inj IVPUSH PRN ×2 (15:00→16:28)
[2017-06-17] MEDS: HYDROmorphone 1 mg/mL Inj IVPUSH PRN ×2 (15:00→16:28)
[2017-06-17 15:17] LABS: Magnesium 1.5 mg/dL (1.6-2.6)
[2017-06-17 15:35] LABS: Lipase 9 U/L (13-60)
[2017-06-17 16:12] LABS: APPEARANCE,URINE CLEAR (CLEAR,HAZY); COLOR,URINE YELLOW (YELLOW); PH,URINE 7.5 (5.0-8.0)
[2017-06-17 16:13] LABS: OCCULT BLOOD,URINE LARGE (NEGATIVE); UROBILINOGEN,URINE NORMAL (NORMAL)
--- NOTE | 2017-06-17 16:25 | DRSVH ---
PROCEDURE: X-RAY CHEST ONE VIEW, PORTABLE ([id number]) INDICATIONS: cough fever TECHNIQUE: One view of the chest was acquired. COMPARISON: , , CHEST 1VW (PORTABLE), 07/30/2011, 17:16. FINDINGS: Surgical changes and devices: None. Lungs and pleura: No pleural effusions or pneumothorax. Lungs are clear. Mediastinum: Mediastinal contours appear normal. Heart size is normal. Bones and chest wall: No suspicious bony lesions. Overlying soft tissues appear unremarkable. IMPRESSION: No acute cardiopulmonary findings. Dictated by: Sona Zaragoza M.D. on 06/17/2017 at 16:24 Approved by: Sona Zaragoza M.D. on 06/17/2017 at 16:24
--- NOTE | 2017-06-17 16:25 | DRSVH ---
PROCEDURE: CT ABDOMEN AND PELVIS WITH CONTRAST ([id number]) INDICATIONS: RLQ pain TECHNIQUE: After the administration of oral and intravenous contrast, 5 mm thick sections acquired from the diap hragms to the symphysis. 5 mm thick coronal and sagittal reformats were performed. For radiation do se reduction, the following was used: automated exposure control, adjustment of mA and/or kV accordi ng to patient size. COMPARISON: [facility], CT, CT ABD PELVIS W CON, 03/16/2016, 14:45. FINDINGS: Image quality: Diagnostic. ABDOMEN: Lung bases: Lung bases are clear. Heart size is normal. Left-sided gynecomastia is incidentally no arnold, but not adequately characterized on this exam. Solid organs: The liver is normal in size. There is a small ovoid area of low attenuation involving the lateral segment of the left hepatic lobe middle ear/along the falciform ligament, which is felt t o represent a focal area of subtle fatty infiltration.. The patient has had a previous cholecystecto my. There is no intrahepatic or extrahepatic biliary dilatation. The spleen is normal in size. The adrenals and pancreas are unremarkable. The kidneys demonstrate symmetric and homogeneous enhanceme nt. There is no hydronephrosis. No definite renal calculi are present. The ureters are nondilated. However, evaluation for ureteral calculi is limited on this examination as the distal ureters are n ot well seen. Peritoneum and bowel: The stomach, duodenum, and remainder of the small bowel loops are nondilated. The conus within normal limits. There is no bowel obstruction. No free fluid, loculated fluid colle ction or free air is evident. The appendix is normal in size without surrounding inflammation (image 62, series 2). A small amount of high attenuation within the appendix is present. Nodes and vessels: No retroperitoneal or mesenteric adenopathy. Aorta and inferior vena cava are no rmal in caliber. Bones: No acute fractures or significant degenerative changes are present. No suspicious osseous les ions. PELVIS: Genitourinary: The urinary bladder is decompressed and subsequently not adequately evaluated. Promin ence of the urinary bladder wall is noted. The prostate is not enlarged. Miscellaneous: No inguinal hernias or adenopathy. No free fluid, loculated fluid collection or free air is evident. Bones: No suspicious bony lesions. No vertebral body compression fractures. IMPRESSION: 1. No acute abnormality within the abdomen or pelvis. 2. No renal or ureteral calculi. No hydronephrosis. 3. Normal appendix. 4. No bowel obstruction. 5. Prominence of the urinary bladder wall probably is exaggerated by incomplete distention. Please correlate clinically to exclude cystitis. Dictated by: Navarro Ballesteros M.D. on 06/17/2017 at 15:18 Approved by: Navarro Ballesteros M.D. on 06/17/2017 at 15:24
[2017-06-17 16:35] VITALS: BP 167/76; PULSE 72; RESP 16; O2SAT 100
[2017-06-17] MEDS ORDERED: Insulin LISPRO 300 Unit/3 mL Inj SUBQ ONE (17:00)
[2017-06-17] MEDS ORDERED: ONDA4TAB9 PO (17:21)
[2017-06-17 17:39] VITALS: BP 164/74; PULSE 77; RESP 18; O2SAT 100
[2017-06-18] MEDS ORDERED: CLON0.1T PO (11:32)
[2017-06-18] MEDS ORDERED: LORA2TAB PO (11:32)
[2017-06-18] MEDS ORDERED: PROM50TA3 PO (11:32)
[2017-06-18] MEDS ORDERED: [UNRECOGNIZED DRUG - CODE] PO (11:32)
[2017-06-18] MEDS ORDERED: BUPR1FIL3 SL (11:33)
== END 2017-06-17 17:46 | disposition home or self-care (01) ==
LOC: SED 13:48
DX: R10.84 Generalized abdominal pain (principal); R30.0 Dysuria; R50.9 Fever, unspecified; R05 Cough; E11.65 Type 2 diabetes mellitus with hyperglycemia; E11.43 Type 2 diabetes mellitus with diabetic autonomic (poly)neuropathy; J45.909 Unspecified asthma, uncomplicated; Z90.49 Acquired absence of other specified parts of digestive tract; Z87.891 Personal history of nicotine dependence; Z79.4 Long term (current) use of insulin; Z88.8 Allergy status to other drugs, medicaments and biological substances; Z91.030 Bee allergy status
CPT/HCPCS: 36415; 71010; 74177; 80053; 81000; 82009; 83690; 83735; 83930; 85025; 96361; 96372; 96374; 96375; 96376; 99285; J1170; J1815; J1885; J2405; J7030; Q9967

== ENCOUNTER 2017-06-18 02:39 | Emergency (ER) | payer MEDICARE, MEDICAID ==
[~2017-06-18] VITALS: Ht 180.3 cm; Wt 70.5 kg
[2017-06-18 02:43] VITALS: BP 157/88; PULSE 87; RESP 20; O2SAT 100
[2017-06-18] MEDS ORDERED: Ondansetron 8 mg ODT Tablet ONE (04:00)
--- NOTE | 2017-06-18 04:25 | ED.REPORT ---
HPI-NVD Date of Service Jun 18, 2017 ED Provider: Ángel Puga MD The patient is a 27 year old male with a hx of type 1 diabetes, asthma, and heroin use presenting to the ED complaining of vomiting onset earlier today. Associated symptoms include nausea, abdominal pain, and diarrhea. His last heroin use was 10 hours ago. He says that he has tried to get off of heroin, but has not been successful. He also admits to having difficulty sleeping. Nursing Notes Stated Complaint: VOMITING,DIABETIC Chief Complaint: Male Abdominal Pain Nursing Notes Reviewed: Yes Allergies: Coded Allergies: metoclopramide HCl (Verified Allergy, Severe, Anaphylaxis, 03/29/16) prochlorperazine edisylate (Verified Allergy, Severe, 03/29/16) 03/20/16 PATIENT RECEIVED PROMETHAZINE prochlorperazine maleate (Verified Allergy, Severe, 03/29/16) venom-honey bee (Verified Allergy, Severe, 03/29/16) Scheduled Acetaminophen (Acetaminophen) 325 Mg Tablet MG PO Q4H Insulin Glargine (Lantus U100 Insulin Vial) 100 Unit/Ml Vial 30 UNIT SUBQ QPM- INSULIN Insulin Regular, Human (HUMulin-R U100 Insulin Vial) 100 Unit/1 Ml Vial 1-12 UNIT SUBQ TIDWM Scheduled PRN Albuterol Sulfate (Ventolin HFA Inhaler) 200 Puff/18 Gm Inhaler 1 PUFF INHALATION Q4H PRN PRN For Shortness of Breath Cyclobenzaprine (Cyclobenzaprine) 10 Mg Tablet 10 MG PO TID PRN PRN Spasm Hydrocodone-Acetaminophen 5-325 mg (Hydrocodone-Acetaminophen 5-325 mg) 1 Each Tablet 1 TABLET PO Q4H PRN PRN For Pain Ondansetron (Zofran) 4 Mg Tablet 4 MG PO Q4H PRN PRN For Nausea Ondansetron ODT (Zofran ODT) 4 Mg Tablet 4 MG PO Q4H PRN PRN For Nausea Ondansetron ODT (Zofran ODT) 4 Mg Tablet 4 MG PO Q4H PRN PRN For Nausea Promethazine (Promethazine) 25 Mg Tablet 25 MG PO Q6H PRN PRN For Nausea Promethazine (Promethazine) 25 Mg Tablet 25 MG PO Q6H PRN PRN For Nausea General Time Seen by MD: :09 Chief Complaint Vomiting Hx Obtained From: Patient Arrived By: Walk-in Onset Occurred: 3 days ago Symptom Duration: Since onset Vomiting: Vomiting clear Past Medical History Past Medical History Gastroparesis Degenerative disc disease ho Fractured right collar bone [place] disease ho Heart murmur ho non-epileptic seizures Admitted to hospital in January 2017 for DKA Non-compliant with medications Reports: Asthma, Diabetes mellitus Past Surgical History Surgery for fractured collar bone Reports: Cholecystectomy Smoking History Former Smoker Social History Alcohol Use: Denies alcohol use Drug Use: IV drugs, THC Other Social History: Local resident Occupation Unemployed Ambulatory Status Independent Review of Systems Difficulty sleeping Constitutional: Denies: Chills, Fever GI: Reports: Abdominal pain, Diarrhea, Nausea, Vomiting Neurologic: Denies: Headache Complete sys rev & neg: except as marked. Physical Exam Initial Vital Signs Vital Signs (First) Date Time Temp Pulse Resp B/P Pulse Ox O2 Delivery O2 Flow Rate FiO2 06/18/17 02:43 36.9 87 20 157/88 100 Room Air Initial VS: Reviewed, Vital signs normal Head / Eyes: Atraumatic, Normocephalic ENT: Mucous membranes moist Neck: Supple, Full range of motion Respiratory: Breath sounds normal, Clear to auscultation, No respiratory distress Back: No CVA tenderness Lymphatic: No lymphadenopathy Neurologic: Alert, Oriented Psychiatric: Mood/affect normal General/Constitutional: Awake, Alert Pale Dehydrated Abdomen: Atraumatic, Soft Abdomen diffusely tender Cardiovascular: Regular rhythm, Heart sounds NL Heart Rate / Rhythm: Positive: Tachycardia Skin: Atraumatic, Warm, Dry Multiple trak castillo without abscesses Interpretation & Diagnostics Lab Results Interpretation Result Diagram: 06/18/17 0525 06/18/17 0525 Test 06/18/17 05:25 06/18/17 05:30 White Blood Count 13.3th/mm3 (3.8-10.1) Red Blood Count 4.70mil/mm3 (4.40-5.80) Hemoglobin 12.6g/dL (13.8-17.2) Hematocrit 36.6% (41.0-50.0) Mean Corpuscular Volume 77.9fL (81-100) Mean Corpuscular Hemoglobin 26.8pg (27.0-35.0) Mean Corpuscular Hemoglobin Concent 34.4% (32.0-37.0) Red Cell Distribution Width 14.0% (12.3-15.4) Platelet Count 308bil/L (150-400) Neutrophils (%) (Auto) 84.4% (40-74) Lymphocytes (%) (Auto) 8.2% (14-46) Monocytes (%) (Auto) 7.1% (4-12) Eosinophils (%) (Auto) 0% (0-5) Basophils (%) (Auto) 0.1% (0-3) Sodium Level 137mEq/L (134-144) Potassium Level 4.0mEq/L (3.5-5.2) Chloride Level 92mEq/L (97-108) Carbon Dioxide Level 27mmol/L (18-29) Blood Urea Nitrogen 21mg/dL (6-20) Creatinine 0.88mg/dL (0.76-1.27) Estimat Glomerular Filtration Rate 111mL/min (>59) Glucose Level 371mg/dL (60-99) Calcium Level 9.4mg/dL (8.5-10.1) Magnesium Level 1.7mg/dL (1.6-2.6) Total Bilirubin 1.1mg/dL (0.0-1.2) Aspartate Amino Transf (AST/SGOT) 17U/L (0-50) Alanine Aminotransferase (ALT/SGPT) 16U/L (0-44) Alkaline Phosphatase 155U/L (25-150) Total Protein 7.9g/dL (6.4-8.4) Albumin 4.3g/dL (3.4-5.0) Lipase 11U/L (13-60) Hold Grimaldo Top Tube Received (Received) Re-Eval/Medical Decision Med Decision/Clinical Course 27-year-old male with type 1 diabetes and IV heroin use presents with nausea and vomiting. His workup and treatment was initiated his care is now being turned over at change of shift to Dr. Almaraz. Re-Evaluation/Progress : Time of Eval: 05:30 Re-Evaluation/Progress Note: Patient rechecked. Informed of future transfer of care to Dr. Almaraz at 0600. Counseled Regarding: Diagnosis, Lab results, Need for follow-up, When/why to return to ED Discharge & Departure Referrals: Celso Beatty MD (PCP) Care Transferred to: Dr. Almaraz Care Transferred at: 06:00 Brian Attestation Portions of this note were transcribed by Felton George. I, Dr. Puga personally performed the history, physical exam and medical decision-making; I reviewed and confirmed the accuracy of the information in the transcribed note. Signed by: Brian Cardoza, 06/18/2017 copies to: Celso Beatty MD, Ángel Concepcion MD Jun 18, 2017 04:25 Jun 18, 2017 04:33
[2017-06-18] MEDS ORDERED: 0.9% Sodium Chloride 1,000 ML IV ONE ×2 (04:36→11:20)
[2017-06-18] MEDS ORDERED: Pantoprazole 4 mg/mL 10 mL Inj IVPUSH ONE (04:40)
[2017-06-18] MEDS ORDERED: Promethazine Inj 25 MG in 0.9% Sodium Chloride 50 ML IV ONE (04:40)
[2017-06-18 05:39] LABS: BASOPHILS % (AUTO) 0.1 % (0-3); EOSINOPHILS % (AUTO) 0 % (0-5); MONOCYTES % (AUTO) 7.1 % (4-12); Mean Corpuscular Hemoglobin 26.8 pg (27.0-35.0); Mean Corpuscular Volume 77.9 fL (81-100); NEUTROPHILS % (AUTO) 84.4 % (40-74); Platelet Count 308 bil/L (150-400)
[2017-06-18 06:01] LABS: Magnesium 1.7 mg/dL (1.6-2.6)
[2017-06-18 07:03] VITALS: BP 125/73; PULSE 73; RESP 18; O2SAT 100
[2017-06-18] MEDS ORDERED: LORazepam 2 mg Tablet PO ONE (08:50)
[2017-06-18] MEDS ORDERED: Phenobarb-Hyoscy-Atrop-Scop 10 mL Elixir PO ONE (08:50)
[2017-06-18] MEDS ORDERED: cloNIDine 0.1 mg Tablet PO ONE (08:50)
[2017-06-18 10:07] VITALS: BP 116/56; PULSE 84; RESP 18; O2SAT 99
[2017-06-18] MEDS ORDERED: PROM50TA3 PO (11:32)
[2017-06-18] MEDS ORDERED: CLON0.1T PO (11:32)
[2017-06-18] MEDS ORDERED: LORA2TAB PO (11:32)
[2017-06-18] MEDS ORDERED: [UNRECOGNIZED DRUG - CODE] PO (11:32)
[2017-06-18] MEDS ORDERED: BUPR1FIL3 SL (11:33)
[2017-06-18 13:35] VITALS: BP 127/59; PULSE 84; RESP 16; O2SAT 100
[2017-06-18 13:57] VITALS: BP 127/59; PULSE 84; RESP 16; O2SAT 100
== END 2017-06-18 13:58 | disposition home or self-care (01) ==
LOC: SED 02:39
DX: F11.90 Opioid use, unspecified, uncomplicated (principal); F15.10 Other stimulant abuse, uncomplicated; R19.7 Diarrhea, unspecified; R10.84 Generalized abdominal pain; J45.909 Unspecified asthma, uncomplicated; E10.9 Type 1 diabetes mellitus without complications; Z72.820 Sleep deprivation; Z87.81 Personal history of (healed) traumatic fracture; Z90.49 Acquired absence of other specified parts of digestive tract; Z98.890 Other specified postprocedural states; Z79.4 Long term (current) use of insulin; Z87.891 Personal history of nicotine dependence; Z88.8 Allergy status to other drugs, medicaments and biological substances; Z91.030 Bee allergy status
CPT/HCPCS: 36415; 80053; 82948; 83690; 83735; 85025; 96361; 96374; 96375; 99285; J2060; J2550; J7030; Q0169; S0164